=== PATIENT | female | born 1980 | race Caucasian/White ===

== ENCOUNTER → 2016-08-15 | Outpatient (CLI) | payer BC ==
[~2016-08-15] MED LIST: ACET-1256 PO; ALBUAER PO; LEVO1TAB33 PO
[2016-08-16 08:54] LABS: ESTIMATED AVERAGE GLUCOSE 105 mg/dl; HA1C FLAG Normal (Normal)
== END | disposition home or self-care (01) ==
LOC: C.LAB1850 15:04
PROVIDERS: ATTEND Family Medicine
DX: R73.02 Impaired glucose tolerance (oral) (principal)

== ENCOUNTER → 2017-03-26 | Outpatient (CLI) | payer BC ==
[~2017-03-26] MED LIST changes: +GADAVIST IV PRN
--- NOTE | 2017-03-26 16:10 | DIAGNOSTIC IMAGING REPORT ---
BRAIN COMBO CLINICAL HISTORY: R55 [id number] mental status change COMPARISON STUDY: No previous studies for comparison. TECHNIQUE: Utilizing a 1.5 Judith magnet and dedicated coil, multiplanar, multiecho imaging of the brain was performed pre and postcontrast administration. IV administration of 9.5 mL of Gadavist contrast was uneventful. FINDINGS: Diffusion-weighted images are negative for an acute ischemic event. Ventricular system is midline. Signal characteristics of the cerebellar as well as cerebral hemispheres are unremarkable. Jugular system is negative for displacement. Structures the sella and parasellar region are unremarkable. No abnormal postcontrast enhancement. IMPRESSION: Normal study. The above report was generated using voice recognition software. It may contain grammatical, syntax or spelling errors. Electronically signed by: Crow Nieto M.D. 03/26/2017 4:08 PM Dictated Date/Time: 03/26/2017 3:56 PM
[2017-03-26 17:55] LABS: LYME DISEASE AB IGG NEG (NEG)
[2017-03-26 18:06] LABS: LYME DISEASE AB IGM POS (NEG)
== END | disposition home or self-care (01) ==
LOC: C.MRI 14:30
PROVIDERS: ATTEND Physician Assistant
DX: R55 Syncope and collapse (principal); R51 Headache; A69.20 Lyme disease, unspecified

== ENCOUNTER 2024-01-07 21:54 | Observation (INO) ==
--- NOTE | 2024-01-07 22:46 | Emergency Department Note ---
Impression & Plan Abscess, periapical, Trismus ED Provider Note NAME: ABAD GENAO AGE: 43 SEX: F : 1980 ARRIVES VIA: Walk-In INFORMANT: Patient, ED PROVIDER(S): Nadeen Alas MD CHIEF COMPLAINT: Left lower jaw pain HPI: This is a 43-year-old female presenting for left lower jaw pain. Patient notes she has had an infection since Saturday/Saturday. Her dentist on vacation and was unable to be seen. They advised to go to urgent care. Was placed on Augmentin and given ibuprofen. She notes that she had worsening symptoms in which she is have difficulty opening her mouth. She noted a pressure building in her lower jaw today and then a sudden release where the pain became more in her upper jaw. She notes when she tries to open her mouth she is unable to open it wide and is difficulty talking. She is able to eat, solid secretion without any difficulty. ROS: See above HPI for pertinent positives & negatives. A total of 10 systems reviewed and were otherwise negative. PAST MEDICAL HISTORY: See Below PAST SURGICAL HISTORY: See Below FAMILY HISTORY: See Below SOCIAL HISTORY: See Below HOME MEDICATIONS: See Below ALLERGIES: See Below VITALS: See Below PHYSICAL EXAMINATION: General: resting comfortably in no acute distress Head: Normocephalic and atraumatic Eyes: Normal inspection, extraocular muscles intact Ear, nose, throat: Normal external exam, no obvious oral abscess, dental caries positive trismus Neck: Normal range of motion Respiratory: lungs clear to auscultation bilaterally Cardiovascular: Regular rate/rhythm, no murmur GI: soft, nontender, no guarding or rebound Extremities: nontender, moves all extremities Neuro: The patient awake and alert, appropriately conversive, no focal deficits, symmetric faces Skin: Warm, dry, and intact MEDICAL DECISION MAKING: This is a 43-year-old male present for left lower jaw pain and trismus. Patient is unable to open her mouth more than 1-2 cm currently. Is able to talk without any voice change. She notes pain in her mandibular region with opening. No obvious abscesses noted despite limited exam. Will do CT of the face to assess for underlying abscess. Low concern for Lev angina without lower jaw swelling. -bloodwork is reviewed showing no significant leukocytosis, anemia, electrolyte or creatinine abnormality -Patient CT imaging does show a 6 mm periapical abscess. There is submandibular lymph node swelling as well -Will order IV Unasyn at this time -Clinically patient appears well with reassuring white count, vital signs. There is obvious apical abscess. Patient does mention that symptoms are improving on Augmentin however clinically she has fairly significant trismus and can only open her mouth about 1 cm. Do of concern that this could worsen in the outpatient setting. Discussed with OMFS, Dr. Bailon who will see her in the morning consultation. Will give her Unasyn right now, IV. Will discuss with Dr. Lomeli for admission . Differential diagnosis: Lev angina, dental abscess, retropharyngeal abscess ER treatment provided: See below Independent History obtained from: Diagnostics interpreted by me: ECG: None Cardiac Monitoring: An order was placed for continuous cardiac monitoring. The monitor shows a rate of 83 with sinus rhythm. Laboratory studies: As stated above and show below. Imaging studies: See below. Past Med/Surg History Problem List (Updated 01/08/24 @ 11:47 by Nadeen Alas MD) Trismus (Acute) Abscess, periapical (Acute) Dental infection Calcium nephrolithiasis Thrombosed external hemorrhoid (Acute) Amniotic fluid leaking (Acute) Third trimester bleeding, antepartum (Acute) Breast pain, left (Acute) Breast tenderness (Acute) Chronic sinusitis (Acute) Right shoulder tendonitis (Acute) Nasal septal ulcer (Acute) Shoulder pain, left (Acute) Headache (Acute) Chest tightness (Acute) Shortness of breath (Acute) Migraines hx Syncope (Acute) Suspected Lyme disease (Acute) Stress reaction (Acute) Sciatica of left side (Acute) Palpitations (Acute) Non-smoker (Acute) Nausea (Acute) Myalgia (Acute) Muscle spasm of back (Acute) Macromastia (Acute) Lyme disease, acute (Acute) Low back pain (Acute) Impaired glucose tolerance (Acute) Hemorrhoids (Acute) Ganglion cyst (Acute) Fatigue (Acute) Encounter for routine gynecological examination with Papanicolaou smear of cervix (Acute) Elevated blood-pressure reading without diagnosis of hypertension (Acute) Breast pain (Acute) BMI 60.0-69.9, adult (Acute) BMI 50.0-59.9, adult (Acute) Subacromial impingement of left shoulder Encounter for pre-operative examination Impingement syndrome of left shoulder History of arthroscopic surgery of shoulder Plantar wart of left foot Right nephrolithiasis Encounter for pre-operative examination Hypertension Recently placed on Spironolactone, PCP monitoring Asthma (Chronic) Polycystic ovarian syndrome (Acute) Hypothyroidism (Acute) Per remote records, pt denies > euthyroid on most recent thyroid labs available (2018) Anxiety (Acute) Migraine without aura, not intractable, without status migrainosus Medical History Hx of endometriosis Kidney stones Lyme disease Dx several years ago, no current issues History of COVID-19 05/2021 > sinus infection 04/2020 > severe cold symptoms, asthma flare Depression Morbid obesity BMI 66.5 Surgical History Status post cystoscopy with ureteral stent placement 02/22/22 @ [facility] History of repair of rotator cuff left shoulder History of colonoscopy H/O laparoscopy Family History Grandfather (Maternal) Coronary heart disease Mother Hypertension Grandmother (Paternal) Family history of diabetes mellitus Family/Other Family history of diabetes mellitus Family/Other Family history of diabetes mellitus Social History Smoking Status: Never smoker Second Hand Exposure: No; Do You Dip or Chew Tobacco: No; Hx Alcohol Use: No Hx Substance Use: No Preferred Language: Faroese Communication Ability: Effective Visual Impairment: No Limitations Bias Binding Cutter Required: No Beliefs That Will Affect Care: None marital status: Current Living Situation: Spouse and Family Feels Safe at Home: Yes Assistive Devices: Glasses Allergies Allergies Allergy/AdvReac Type Severity Reaction Status Date / Time levofloxacin [From Levaquin] Allergy Intermediate HIVES ITCHY Verified 09/06/23 08:54 prednisone AdvReac Intermediate APPETITE Verified 09/06/23 08:54 LOSS/ANXIOUS/BUGS CRAWLING ON SKIN Home Meds Home Medications Medication Instructions Recorded Confirmed levonorgestrel 21 mcg/24 hr (up to 1 device intrauterine UD 03/17/19 01/08/24 8 years) 52 mg intrauterine device (Mirena) multivitamin (Multiple Vitamins 1 tab PO QAM 05/12/20 01/08/24 tablet) amoxicillin 875 mg-potassium 1 tab PO BID 01/08/24 01/08/24 clavulanate 125 mg tablet ibuprofen 800 mg tablet 800 mg PO TID 01/08/24 01/08/24 Previous Rx's Medication Instructions Recorded sumatriptan succinate 100 mg 100 mg PO .COMPLEX PRN migraine 04/09/22 tablet (Imitrex) headache 30 days #9 tabs Results & Data (ED) Vital Signs Vital Signs - 24 hr 01/07/24 21:56 01/08/24 00:00 Temperature 36.6 C Temperature Source Temporal Artery Scan Pulse Rate 97 H Pulse Rate [Finger] 82 Pulse Rhythm Regular Pulse Rhythm [Finger] Regular Pulse Strength Normal Pulse Strength [Finger] Normal Respiratory Rate 20 20 Respiratory Effort / Characteristics Non-Labored Spontaneous Non-Labored Spontaneous Respiratory Depth Normal Normal Blood Pressure 156/94 H Blood Pressure [Left Arm] 141/91 H Blood Pressure Mean 114 Blood Pressure Mean [Left Arm] 107 Blood Pressure Position [Left Arm] Lying Pulse Oximetry 95 98 Oxygen Delivery Method Room Air Room Air Sepsis Recent Fever Within 48 Hours No Sepsis New/Unexplained Change in Mental Status N/A Sepsis Action Taken by Nursing No Action Required Laboratory Data 01/07/24 22:35 01/07/24 22:35 Lab Results 01/07/24 01/07/24 Range/Units 22:35 22:39 WBC 9.24 (4.8-10.8) K/ul RBC 4.93 (4.20-5.40) M/uL Hgb 15.0 (12.0-16.0) g/dl POC Hgb 15.3 (12.0-16.0) g/dl Hct 44.7 (37.0-47.0) % POC Hct 45 (37-47) % MCV 90.7 (80.0-100.0) fL MCH 30.4 (25.0-34.0) pg MCHC 33.6 (32.0-36.0) g/dL RDW Std Deviation 42.7 (36.4-46.3) fL RDW Coeff of Graham 12.8 (11.5-14.5) % Plt Count 288 (130-400) K/uL MPV 10.1 (9.4-12.4) fL Immature Gran % (Auto) 0.2 % Neut % (Auto) 57.1 % Lymph % (Auto) 30.0 % [place] % (Auto) 10.6 % Eos % (Auto) 1.2 % Baso % (Auto) 0.9 % Neut # (Auto) 5.28 (1.40-6.50) K/uL Lymph # (Auto) 2.77 (1.20-3.40) K/uL [place] # (Auto) 0.98 H (0.11-0.59) K/uL Eos # (Auto) 0.11 (0.00-0.50) K/uL Baso # (Auto) 0.08 (0.00-0.20) K/uL Immature Gran # (Auto) 0.02 (0.01-0.20) K/uL POC Sodium 138 (135-144) mmol/L Sodium 137 (136-145) mmol/L POC Potassium 3.7 (3.3-5.0) mmol/L Potassium 3.7 (3.5-5.1) mmol/L POC Chloride 103 (101-112) mmol/L Chloride 103 (98-107) mmol/L Carbon Dioxide 26 (21-32) mmol/L POC Total CO2 23 L (24-31) mmol/L Anion Gap 8 (3-11) POC Anion Gap 16.0 (16-25) mmol/L POC BUN 12 (7-18) mg/dl BUN 14 (6-23) mg/dl Creatinine 0.78 (0.6-1.2) mg/dl POC Creatinine 0.7 (0.6-1.3) mg/dl Est Cr Clr Drug Dosing 143.8 ml/min Est GFR ( Amer) 108.7 ml/min Est GFR (Non-Af Amer) 93.8 ml/min BUN/Creatinine Ratio 17.9 (10-20) Glucose 108 H (70-99(Fasting)) mg/dl POC Glucose (other) 110 H (70-99) mg/dl Calcium 9.5 (8.6-10.3) mg/dl POC Ioniz Calcium [place] 1.17 (1.12-1.32) mmol/l Administered Medications Ampicillin Sodium/Sulbactam Sodium (Unasyn) 3,000 mg in 100 mls @ 200 mls/hr IV Q6H TAZ Stop: 01/18/24 07:59 Last Infusion: 01/08/24 08:42 Dose: Infused Documented By: Admin: 01/08/24 07:54 Dose: 200 mls/hr Documented By: NEIL Lactated Ringer's (Lr) 1,000 mls @ 100 mls/hr IV .Q10H ONE Stop: 01/08/24 20:22 Last Admin: 01/08/24 11:31 Dose: 100 mls/hr Documented By: NEIL Ibuprofen (Ibuprofen 800 Mg Tab) 800 mg PO TID TAZ Stop: 02/07/24 08:59 Last Admin: 01/08/24 08:37 Dose: 800 mg Documented By: NEIL Discontinued Medications Ampicillin Sodium/Sulbactam Sodium (Unasyn) 3,000 mg in 100 mls @ 200 mls/hr IV NOW STA Stop: 01/08/24 01:19 Last Infusion: 01/08/24 01:52 Dose: Infused Documented By: Admin: 01/08/24 01:14 Dose: 200 mls/hr Documented By: DARSHANA Ioversol (Optiray 320 125ml) 125 ml IV ONCE ONE Stop: 01/07/24 23:13 Last Admin: 01/07/24 23:13 Dose: 118 ml Documented By: DAYRON Imaging Data Radiologist's Impression: Face CT 01/07/24 22:28 Exam(s): CT FACIAL With Contrast IV Amt: 118 ML OPTIRAY 320 EXAM: CT Maxillofacial With Intravenous Contrast CLINICAL HISTORY: Reason for exam: lower dental infection, trismus. TECHNIQUE: Axial computed tomography images of the face with intravenous contrast. CTDI is 13.27 mGy and DLP is 259.73 mGy-cm. Automated exposure control was utilized for the study. A dose lowering technique was utilized adhering to the principles of ALARA. CONTRAST: Patient received 118 ML OPTIRAY 320 of IV contrast COMPARISON: None. FINDINGS: Diagnostic sensitivity of the exam is reduced by motion and beam hardening artifacts. Bones/joints: No acute fracture. Soft tissues: Posterior left mandibular a 6.0 mm periapical lucency/periapical abscess is demonstrated (series 2 image 59, series 301 image 36). Orbits: Unremarkable. Sinuses: Minimal left maxillary sinus mucosal thickening. No air-fluid levels. Other findings: Mildly enlarged predominantly left submandibular lymph nodes. IMPRESSION: Posteriorly left mandibular a small 6 mm periapical lucency/periapical abscess is seen.. Mildly enlarged predominantly left submandibular lymph nodes. Electronically signed by: John Rivas MD, SHAHBAZ 01/08/24 00:36 AM Discharge Plan Visit Data Chief Complaint: Dental/Oral Stated Complaint: JAW INFECTION L SIDE - GETTING WORSE ED Provider: Nadeen Alas Discharge Problem: Abscess, periapical, Trismus Patient Disposition: Admitted As Inpatient Discharge Instructions Interventions: ED Discharge Assessment Last Done: 01/08/24 04:14
[2024-01-07 22:53] LABS: iSTAT Creatinine 0.7 mg/dl (0.6-1.3); iSTAT Hemoglobin 15.3 g/dl (12.0-16.0); iSTAT Ionized Calcium 1.17 mmol/l (1.12-1.32); iSTAT Potassium 3.7 mmol/L (3.3-5.0)
[2024-01-07 23:12] LABS: Basophils # (auto) 0.08 K/uL (0.00-0.20); Basophils % (auto) 0.9 %; Eosinophils # (auto) 0.11 K/uL (0.00-0.50); Eosinophils % (auto) 1.2 %; Hematocrit (blood only) 44.7 % (37.0-47.0); Immature Granulocytes # (auto) 0.02 K/uL (0.01-0.20); Immature Granulocytes % (auto) 0.2 %; Lymphocytes # (auto) 2.77 K/uL (1.20-3.40); Mean Corpuscular Hemoglobin 30.4 pg (25.0-34.0); Mean Corpuscular Hgb Conc 33.6 g/dL (32.0-36.0); Mean Corpuscular Volume 90.7 fL (80.0-100.0); Mean Platelet Volume 10.1 fL (9.4-12.4); Monocytes # (auto) 0.98 K/uL (0.11-0.59); Monocytes % (auto) 10.6 %; Neutrophils # (auto) 5.28 K/uL (1.40-6.50); Neutrophils % (auto) 57.1 %; Platelet Count 288 K/uL (130-400); RDW Coefficient of Variation 12.8 % (11.5-14.5); RDW Standard Deviation 42.7 fL (36.4-46.3); Red Blood Count 4.93 M/uL (4.20-5.40); White Blood Count 9.24 K/ul (4.8-10.8)
[2024-01-07] MEDS: OPTIRAY 320 125ml IV ONE (23:13)
[2024-01-07 23:19] LABS: BUN Creatinine Ratio 17.9 (10-20); Calcium 9.5 mg/dl (8.6-10.3); Creatinine Clr Calc Pharmacy 143.8 ml/min; Est GFR (African American) 108.7 ml/min; Est GFR (Non-African American) 93.8 ml/min; Potassium 3.7 mmol/L (3.5-5.1)
--- NOTE | 2024-01-08 00:37 | CT Scan Report ---
Exam(s): CT FACIAL With Contrast IV Amt: 118 ML OPTIRAY 320 EXAM: CT Maxillofacial With Intravenous Contrast CLINICAL HISTORY: Reason for exam: lower dental infection, trismus. TECHNIQUE: Axial computed tomography images of the face with intravenous contrast. CTDI is 13.27 mGy and DLP is 259.73 mGy-cm. Automated exposure control was utilized for the study. A dose lowering technique was utilized adhering to the principles of ALARA. CONTRAST: Patient received 118 ML OPTIRAY 320 of IV contrast COMPARISON: None. FINDINGS: Diagnostic sensitivity of the exam is reduced by motion and beam hardening artifacts. Bones/joints: No acute fracture. Soft tissues: Posterior left mandibular a 6.0 mm periapical lucency/periapical abscess is demonstrated (series 2 image 59, series 301 image 36). Orbits: Unremarkable. Sinuses: Minimal left maxillary sinus mucosal thickening. No air-fluid levels. Other findings: Mildly enlarged predominantly left submandibular lymph nodes. IMPRESSION: Posteriorly left mandibular a small 6 mm periapical lucency/periapical abscess is seen.. Mildly enlarged predominantly left submandibular lymph nodes. Electronically signed by: John Rivas MD, DABR 01/08/24 00:36 AM
--- NOTE | 2024-01-08 01:00 | History & Physical Report ---
Date of Service January 08, 2024 Assessment & Plan (1) Dental infection: Plan: 43yo female presenting with progressive dental infection. Patient has been on Augmentin and Ibuprofen as an outpatient but has had worsening symptoms. Now with pain, warmth and tenderness in her left face and neck as well as trismus. No systemic evidence of infection. -Admit to medical -Keep NPO -Unasyn 3gm IV q 6hr -Warm compresses -Tylenol and Ibuprofen as needed -Zofran as needed -OMFS consultation appreciated History of Present Illness Chief Complaint: trismus Primary Care Provider: NO PCP Venessa Clement is a 43yo female presenting with right sided facial pain and swelling. Patient developed a slight toothache in the left mandibular molar on 01/02/24. Her pain became much worse overnight into 01/02. When she woke in the morning she had warmth, swelling and tenderness of the left side of the face. She tried to call her dentist but he was unavailable on vacation so she was directed to go to Urgent Care. She was diagnosed with a tooth infection and prescribed Augmentin 875/125mg BID and Ibuprofen 800mg po TID. She has been taking her medications as prescribed. She initially had some improvement. However, yesterday she was unable to open her mouth. She called her PCP and had an appointment scheduled for tomorrow AM. THis evening she had a bulge in her left neck and under her chin on the left side. She reports she felt something "pop" and felt fluid spread down her neck. Her pain is persistent and she is still unable to open her mouth. She had a fever initially on 01/01 but not since No additional complaints at this time Allergies Allergy/AdvReac Type Severity Reaction Status Date / Time levofloxacin [From Levaquin] Allergy Intermediate HIVES ITCHY Verified 09/06/23 08:54 prednisone AdvReac Intermediate APPETITE Verified 09/06/23 08:54 LOSS/ANXIOUS/BUGS CRAWLING ON SKIN Home Medications Medication Instructions Recorded Confirmed Type levonorgestrel 21 mcg/24 hr (up to 1 device intrauterine UD 03/17/19 01/08/24 History 8 years) 52 mg intrauterine device (Mirena) multivitamin (Multiple Vitamins 1 tab PO QAM 05/12/20 01/08/24 History tablet) sumatriptan succinate 100 mg 100 mg PO .COMPLEX PRN migraine 04/09/22 01/08/24 Rx tablet (Imitrex) headache 30 days #9 tabs amoxicillin 875 mg-potassium 1 tab PO BID 01/08/24 01/08/24 History clavulanate 125 mg tablet ibuprofen 800 mg tablet 800 mg PO TID 01/08/24 01/08/24 History Past Med/Surg History Problem List (Updated 01/08/24 @ 03:48 by Elsy Lomeli DO) Dental infection Calcium nephrolithiasis Thrombosed external hemorrhoid (Acute) Amniotic fluid leaking (Acute) Third trimester bleeding, antepartum (Acute) Breast pain, left (Acute) Breast tenderness (Acute) Chronic sinusitis (Acute) Right shoulder tendonitis (Acute) Nasal septal ulcer (Acute) Shoulder pain, left (Acute) Headache (Acute) Chest tightness (Acute) Shortness of breath (Acute) Migraines hx Syncope (Acute) Suspected Lyme disease (Acute) Stress reaction (Acute) Sciatica of left side (Acute) Palpitations (Acute) Non-smoker (Acute) Nausea (Acute) Myalgia (Acute) Muscle spasm of back (Acute) Macromastia (Acute) Lyme disease, acute (Acute) Low back pain (Acute) Impaired glucose tolerance (Acute) Hemorrhoids (Acute) Ganglion cyst (Acute) Fatigue (Acute) Encounter for routine gynecological examination with Papanicolaou smear of cervix (Acute) Elevated blood-pressure reading without diagnosis of hypertension (Acute) Breast pain (Acute) BMI 60.0-69.9, adult (Acute) BMI 50.0-59.9, adult (Acute) Subacromial impingement of left shoulder Encounter for pre-operative examination Impingement syndrome of left shoulder History of arthroscopic surgery of shoulder Plantar wart of left foot Right nephrolithiasis Encounter for pre-operative examination Hypertension Recently placed on Spironolactone, PCP monitoring Asthma (Chronic) Polycystic ovarian syndrome (Acute) Hypothyroidism (Acute) Per remote records, pt denies > euthyroid on most recent thyroid labs available (2018) Anxiety (Acute) Migraine without aura, not intractable, without status migrainosus Medical History Hx of endometriosis Kidney stones Lyme disease Dx several years ago, no current issues History of COVID-19 05/2021 > sinus infection 04/2020 > severe cold symptoms, asthma flare Depression Morbid obesity BMI 66.5 Surgical History Status post cystoscopy with ureteral stent placement 02/22/22 @ [facility] History of repair of rotator cuff left shoulder History of colonoscopy H/O laparoscopy Family History Grandfather (Maternal) Coronary heart disease Mother Hypertension Grandmother (Paternal) Family history of diabetes mellitus Family/Other Family history of diabetes mellitus Family/Other Family history of diabetes mellitus Social History Smoking Status: Never smoker Second Hand Exposure: No; Do You Dip or Chew Tobacco: No; Hx Alcohol Use: No Hx Substance Use: No Preferred Language: Greenlandic Communication Ability: Effective Visual Impairment: No Limitations Bull Fiddle Player Required: No Beliefs That Will Affect Care: None marital status: Current Living Situation: Spouse and Family Feels Safe at Home: Yes Assistive Devices: Contacts and Glasses Review of Systems Review of Systems: All systems reviewed & are unremarkable except as noted in HPI & below Physical Exam Physical Exam: General: patient resting comfortably, NAD, non-toxic in appearance, AA&O x 4 Skin: warm, dry, intact, no rashes or lesions HEENT: NC/AT, PERRL, EOMI, anicteric sclera, conjunctiva without injection, external ear normal to inspection and nontender, nares patent, dry mucus membranes, patient unable to open mouth omre than a couple of millimeters, broke tooth in left lower, warmth, tenderness on the left side of the fact, below chin and into the neck Heart: +S1/S2, regular, no m/r/g Lungs: equal air entry bilaterally, no rales/rhonchi/wheezes Abd: +BS, soft, NT/ND, no masses/organomegaly/ascites Ext: warm, 2+ pulses in UE/LE bilaterally, no clubbing/cyanosis or edema Neuro: nonfocal, patient AA&O x 4, speech intact, no facial droop, moving all extremities on command with equal strength 5/5 Results & Data Results & Data Vital Signs (Past 12 Hours) Vital Signs Temp Pulse Pulse Resp BP BP Pulse Ox 01/08/24 00:00 82 20 141/91 H 98 01/07/24 21:56 36.6 C 97 H 20 156/94 H 95 O2 Del Method 01/08/24 00:00 Room Air 01/07/24 21:56 Room Air Laboratory Results Laboratory Results WBC 9.24 K/ul (4.8-10.8) 01/07/24 22:35 RBC 4.93 M/uL (4.20-5.40) 01/07/24 22:35 Hgb 15.0 g/dl (12.0-16.0) 01/07/24 22:35 POC Hgb 15.3 g/dl (12.0-16.0) 01/07/24 22:39 Hct 44.7 % (37.0-47.0) 01/07/24 22:35 POC Hct 45 % (37-47) 01/07/24 22:39 MCV 90.7 fL (80.0-100.0) 01/07/24 22:35 MCH 30.4 pg (25.0-34.0) 01/07/24 22:35 MCHC 33.6 g/dL (32.0-36.0) 01/07/24 22:35 RDW Std Deviation 42.7 fL (36.4-46.3) 01/07/24 22:35 RDW Coeff of Graham 12.8 % (11.5-14.5) 01/07/24 22:35 Plt Count 288 K/uL (130-400) 01/07/24 22:35 MPV 10.1 fL (9.4-12.4) 01/07/24 22:35 Immature Gran % (Auto) 0.2 % 01/07/24 22:35 Neut % (Auto) 57.1 % 01/07/24 22:35 Lymph % (Auto) 30.0 % 01/07/24 22:35 [place] % (Auto) 10.6 % 01/07/24 22:35 Eos % (Auto) 1.2 % 01/07/24 22:35 Baso % (Auto) 0.9 % 01/07/24 22:35 Neut # (Auto) 5.28 K/uL (1.40-6.50) 01/07/24 22:35 Lymph # (Auto) 2.77 K/uL (1.20-3.40) 01/07/24 22:35 [place] # (Auto) 0.98 K/uL (0.11-0.59) H 01/07/24 22:35 Eos # (Auto) 0.11 K/uL (0.00-0.50) 01/07/24 22:35 Baso # (Auto) 0.08 K/uL (0.00-0.20) 01/07/24 22:35 Immature Gran # (Auto) 0.02 K/uL (0.01-0.20) 01/07/24 22:35 POC Sodium 138 mmol/L (135-144) 01/07/24 22:39 Sodium 137 mmol/L (136-145) 01/07/24 22:35 POC Potassium 3.7 mmol/L (3.3-5.0) 01/07/24 22:39 Potassium 3.7 mmol/L (3.5-5.1) 01/07/24 22:35 POC Chloride 103 mmol/L (101-112) 01/07/24 22:39 Chloride 103 mmol/L (98-107) 01/07/24 22:35 Carbon Dioxide 26 mmol/L (21-32) 01/07/24 22:35 POC Total CO2 23 mmol/L (24-31) L 01/07/24 22:39 Anion Gap 8 (3-11) 01/07/24 22:35 POC Anion Gap 16.0 mmol/L (16-25) 01/07/24 22:39 POC BUN 12 mg/dl (7-18) 01/07/24 22:39 BUN 14 mg/dl (6-23) 01/07/24 22:35 Creatinine 0.78 mg/dl (0.6-1.2) 01/07/24 22:35 POC Creatinine 0.7 mg/dl (0.6-1.3) 01/07/24 22:39 Est Cr Clr Drug Dosing 143.8 ml/min 01/07/24 22:35 Est GFR ( Amer) 108.7 ml/min 01/07/24 22:35 Est GFR (Non-Af Amer) 93.8 ml/min 01/07/24 22:35 BUN/Creatinine Ratio 17.9 (10-20) 01/07/24 22:35 Glucose 108 mg/dl (70-99(Fasting)) H 01/07/24 22:35 POC Glucose (other) 110 mg/dl (70-99) H 01/07/24 22:39 Calcium 9.5 mg/dl (8.6-10.3) 01/07/24 22:35 POC Ioniz Calcium [place] 1.17 mmol/l (1.12-1.32) 01/07/24 22:[address] 01/07/24 22:28 Exam(s): CT FACIAL With Contrast IV Amt: 118 ML OPTIRAY 320 EXAM: CT Maxillofacial With Intravenous Contrast CLINICAL HISTORY: Reason for exam: lower dental infection, trismus. TECHNIQUE: Axial computed tomography images of the face with intravenous contrast. CTDI is 13.27 mGy and DLP is 259.73 mGy-cm. Automated exposure control was utilized for the study. A dose lowering technique was utilized adhering to the principles of ALARA. CONTRAST: Patient received 118 ML OPTIRAY 320 of IV contrast COMPARISON: None. FINDINGS: Diagnostic sensitivity of the exam is reduced by motion and beam hardening artifacts. Bones/joints: No acute fracture. Soft tissues: Posterior left mandibular a 6.0 mm periapical lucency/periapical abscess is demonstrated (series 2 image 59, series 301 image 36). Orbits: Unremarkable. Sinuses: Minimal left maxillary sinus mucosal thickening. No air-fluid levels. Other findings: Mildly enlarged predominantly left submandibular lymph nodes. IMPRESSION: Posteriorly left mandibular a small 6 mm periapical lucency/periapical abscess is seen.. Mildly enlarged predominantly left submandibular lymph nodes. Electronically signed by: John Rivas MD, SALEEMR 01/08/24 00:36 AM PG Care Time/CCT Total # of Minutes Spent Total Time Spent with Patient: Total time spent is greater than 50% in coordination of care (as documented) at patient's floor/unit and/or counseling patient: Coding Level of Care Code 60005 INT INP/OBS CARE 2/55MIN Diagnoses Dental infection K04.7
[2024-01-08] MEDS: AMPICILLIN/SULBACTAM SOD 3,000 MG/100 ML BAG IV STA (01:14)
--- OUTSIDE RECORDS SUMMARY | 2024-01-08 06:25 | External Medical Summary | Summary of Care ---
Author Name Unknown Organization [facility] Address [address] [place] [address] Phone [phone] Care Team Providers Care Shift Production Associate Name Role Phone Gisela MUÑOZ MD, Jd Posada Primary Care Pr ovider Encounter Details Date Type Department Care Team (Late st Contact Info) Description 12/02/2023 Orders Only Outcomes Research Department [address] [place] [address] Stefanie Berry [employer] Research Other*[id number] Allergies No known active allergiesdocumented as of this encounter (statuses as of 12/02/2023) Medications Medication Sig Dispensed Refills Start Date End Date Status Multiple Vitamins-Minerals (MULTIVITAMIN GUMMIES WOMENS) CHEW Take 2 Each by mouth daily. Active albuterol HFA (PROVENTIL HFA) 108 (90 BASE) MCG/ACT inhaler Inhale 2 Puffs by mouth every 6 hours as needed. Active buPROPion extended release, SR, (WELLBUTRIN SR) 150 MG TB12 Take 1 tab by mouth once a day for 2 weeks then take 1 tab twice a day (morning & late afternoon) 60 Tab 1 09/11/2018 Active naltrexone (REVIA) 50 MG Tablet Take 1/2 tab by mouth once a day for 2 weeks then take 1/2 tab twice a day (morning & late afternoon) 30 Tab 09/11/2018 Active documented as of this encounter (statuses as of 12/02/2023) Active Problems Problem Noted Date Diagnosed Date Hypothyroidism 07/03/2018 Depression with anxiety 07/03/2018 BMI 60.0-69.9, adult 07/03/2018 documented as of this encounter (statuses as of 12/02/2023) Social History Tobacco Use Types Packs/Day Years Used Date Smoking Tobacco: Never Smokeless Tobacco: Never Alcohol Use Standard Drinks/Week Comments Yes 0 (1 standard drink = 0.6 oz pur e alcohol) very rare Utilities Answer Date Recorded Do you have trouble paying y our heating, water, or electric bill? (Adult - for ages 18 years and over) Not on file 10/22/2023 Is your family able to pay t he heat, water, or electric bill? (Household - for ages 0-17 years) Not on file 10/22/2023 Does your family have access to good internet? (Household - for ages 0-17 years) Not on file 10/22/2023 Social Connections Answer Date Recorded How often do you feel lonely or isolated from those around you? (Adult - for ages 18 years and over) Not on file 10/22/2023 Sex and Gender Information Value Date Recorded Sex Assigned at Not on file Gender Identity Not on file Sexual Orientation Not on file documented as of this encounter Plan of Treatment Scheduled Orders Name Type Priority Associated Diagnoses Orde r Schedule MYCODE INITIAL ADULT Lab Routine [employer] Research Other*[id number] Expected: 12/02/2023 (Approximate), Expires: 12/21/2024 Health Maintenance Due Date Last Done Comments Diabetes Screening 1981 Lipid Panel 1981 Depression Monitoring 1993 HIV Screening 1996 Hepatitis C Screening 07/21/1999 DTaP,Tdap,and Td Vaccines (1 - Tdap) 2000 Hepatitis B Vaccine (1 of 3 - 19+ 3-dose series) 2000 Pap Smear 2002 Cervical Cancer Screening 07/21/2011 HPV/Co-Test 07/21/2011 Mammogram 2021 COVID-19 Vaccine ( - 2022-2 4 season) 2023 Influenza Vaccine (FLU shot) (#1) 2024 HPV (Gardasil) Vaccine Aged Out No lo nger eligible based on patient's age to complete this topic MENINGOCOCCAL (MENACTRA/MENVEO) Aged Out No longer eligible based on patient's age to complete this topic Pneumococcal Vaccine: Pediat rics (0 to 5 Years) and At-Risk Patients (6 to 64 Years) Aged Out No longer eligible b ased on patient's age to complete this topic documented as of this encounter Medical Devices Not on filedocumented as of this encounter Visit Diagnoses Diagnosis [employer] Research Other*[id number] documented in this encounter Care Teams Shift Production Associate Relationship Specialty Start Date End Date Jd Higgins III, MD PCP - General Internal Medicine 02/23/16 documented as of this encounter
[2024-01-08] MEDS: AMPICILLIN/SULBACTAM SOD 3,000 MG/100 ML BAG IV SCH (07:54)
[2024-01-08] MEDS: IBUPROFEN 800 MG TAB PO SCH (08:37)
--- NOTE | 2024-01-08 10:18 | Hospitalist Progress Note ---
Date of Service January 08, 2024 Assessment & Plan (1) Dental infection: Plan: - left posterior mandibular abscess of [address] - Continue with NPO, awaiting potential surgical management - IV fluids (LR) ordered, patient clinically appears dry - no signs of systemic infection at this time - Warm compresses - Tylenol, Ibuprofen, and Zofran as needed - Unasyn 3gm IV q 6hr - OMFS consulted Plan Diet: NPO Code status: FULL CODE Anticipated d/c: 01/09/24 Admission and Anticipated Discharge Date Admission Date: January 08, 2024 Supervising Physician Co-Signing Physician Notes Patient was seen and examined independently I discussed the case with Iman THOMAS I reviewed pertinent past medical social family history and also the plan of care and agree with the plan of care. Patient was in her hospital room she said she still has some minor pain to the posterior left jaw but is much better than presentation she has no persistent breathing problems. At my time of evaluation she is awaiting consultation by oral maxillofacial surgery with expectation she is can have her abscess drained Generally she has no other medical problems or complaints at this time She is awake alert appropriate she is able to control her secretions and protect her airway No significant lymphadenopathy in the posterior mandibular inframandibular area Card exam is regular lungs are clear Periodontal abscess with oral maxillofacial surgical consultation continuing Un asyn therapy with expectation of likely abscess drainage in the operating room Continue intravenous fluids and parenteral pain control as needed Any exceptions will be noted below Subjective Patient is doing well with no acute event overnight. Upon examination patient was laying in bed watching TV. She states she does not have any pain, she just cannot open her jaw more than a few centimeters. She denies nausea, vomiting, diarrhea, abdominal pain, vision changes, sore throat, cough, and shortness of breath. She felt the left sided jaw inflammation was causing difficultly breathing yesterday, when she arrived, but those symptoms have subsided. Review of Systems Review of Systems: See hpi Physical Exam Physical Exam: The patient is awake, alert and oriented 3, well developed and well nourished, normocephalic and atraumatic, lying in bed and in no acute distress. Non-toxic appearing. HEENT- EOMI, mucous membranes dry. Hearing grossly intact. Patient unable to open mouth more than a few centimeters, no drainage noted. Neck- Thyroid normal, trachea midline. Mild swelling, warmth, and tenderness on left side below the chin and into the upper neck. Heart-normal S1 and S2. No murmurs, rubs or gallops. Lungs-clear bilaterally, no respiratory distress, no accessory muscle use. Abdomen-normal bowel sounds and soft.No ascites. Non-tender. Extremities-no cyanosis or clubbing. No edema. Dermatologic-normal color, no rash. Rheumatologic-normal range of motion. Psychiatric-normal affect. Results & Data Results & Data Vital Signs (Past 12 Hours) Vital Signs Temp Pulse Pulse Resp BP BP Pulse Ox 01/08/24 08:03 36.7 C 83 14 136/76 95 01/08/24 07:42 36.5 C 76 18 103/66 96 01/08/24 04:40 01/08/24 04:40 36.9 C 76 14 141/86 H 95 01/08/24 02:00 74 18 140/93 97 01/08/24 00:00 82 20 141/91 H 98 O2 Del Method 01/08/24 08:03 Room Air 01/08/24 07:42 Room Air 01/08/24 04:40 Room Air 01/08/24 04:40 Room Air 01/08/24 02:00 Room Air 01/08/24 00:00 Room Air PG Care Time/CCT Total # of Minutes Spent Total Time Spent with Patient: Total time spent is greater than 50% in coordination of care (as documented) at patient's floor/unit and/or counseling patient: Coding Level of Care Code None Diagnoses Dental infection K04.7
--- NOTE | 2024-01-08 11:25 | Oral/Maxillofacial Consult ---
Date of Consultation January 08, 2024 Assessment & Plan (1) Trismus: (2) Abscess, periapical: (3) Dental infection: History of Present Illness Attending Physician: Juan Manuel Lugo MD History of Present Illness Oral Maxillofacial Surgery Exam Present Complaint: I have pain/swelling/drainage from my infected lower left tooth. Symptoms have been ongoing for a while. Now swollen inability to open mouth -trismus Oral ExamThis is a 43-year-old male present for left lower jaw pain and trismus. Patient is unable to open her mouth more than 1 cm currently. Is able to talk without any voice change. She notes pain in her mandibular region with opening. No obvious abscesses noted despite limited exam. -bloodwork is reviewed showing no significant leukocytosis, anemia, electrolyte or creatinine abnormality -Patient CT imaging does show a 6 mm periapical abscess. There is submandibular lymph node swelling as well -Clinically patient appears well with reassuring white count, vital signs. There is obvious apical abscess. Patient does mention that symptoms are improving on Augmentin however clinically she has fairly significant trismus and can only open her mouth about 1 cm. Do to concern that this could worsen in the outpatient setting. Discussed with OMFS, Dr. Bailon who will see her in the morning consultation. Will give her Unasyn right now, IV. Will discuss with Dr. Lomeli for admission.: Finding--Trismus 1 cm, swollen tender gingival tissue with deep pocket formation. # 18 is in an abnormal position and removal is clinical indicated. Imaging: Noted abscessed # 18 with cortical radiolucent area at apex-this is the etiology for the submandibular swelling and trismus, Soft tissue: The floor of the mouth is swollen however n swelling associated with the tongue, hard/soft palate, posterior pharyngeal area all with in normal limits, The bulk of the swelling is in the left masseter space which accounts for the lack of extraoral swelling and the significant trismus. Oral Care: Overall oral care is fair Occlusion: Class I TMJ exam: No pop, clicking, pain, good ROM, No history of TMJ injury or dysfunction Periodontal exam: Overall the gingival tissue is without evidence of periodontal pathology. Head/Neck exam: Neck is supple, FROM, Able to extend and flex neck w/o difficulty, left submandibular and masseter space swelling swelling, no masses, no abnormalities, no airway issues, no evidence of sleep apnea. Treatment Plan: Set up with general anesthesia in hospital for I&D with extraction # 18 I reviewed the treatment plan and consent with the patient Understanding was expressed. Time was given for questions regarding the surgery, risks and post op care. Discussed alternative to treatment--procedure as planned, Do not do surgery The following teeth are decayed and fractured and removal is indicated STEVE:# 18 Risks discussed: Bleeding,Pain,swelling,infection, dry socket, delayed healing, nerve injury to face,lips,tongue,chin area which could be permanent (rare). TMJ, jaw stiffness, change in bite (rare), ear pain (referred). Sinus problems like fistula or infection. Need to leave a small root fragment in place to avoid injury to nerve or sinus. Relationship of wisdom teeth to nerve/sinus and risk of jaw fracture. Home care reviewed: tooth brushing, rinsing, follow up care with Dr Bailon. diet=[id number] dental. Discussed activity level, driving/work while on Rx pain Meds. Surgery to be set up once for this afternoon - plan I&D with extraction of # 18 Allergies Allergy/AdvReac Type Severity Reaction Status Date / Time levofloxacin [From Levaquin] Allergy Intermediate HIVES ITCHY Verified 09/06/23 08:54 prednisone AdvReac Intermediate APPETITE Verified 09/06/23 08:54 LOSS/ANXIOUS/BUGS CRAWLING ON SKIN Home Medications Medication Instructions Recorded Confirmed Type levonorgestrel 21 mcg/24 hr (up to 1 device intrauterine UD 03/17/19 01/08/24 History 8 years) 52 mg intrauterine device (Mirena) multivitamin (Multiple Vitamins 1 tab PO QAM 05/12/20 01/08/24 History tablet) sumatriptan succinate 100 mg 100 mg PO .COMPLEX PRN migraine 04/09/22 01/08/24 Rx tablet (Imitrex) headache 30 days #9 tabs amoxicillin 875 mg-potassium 1 tab PO BID 01/08/24 01/08/24 History clavulanate 125 mg tablet ibuprofen 800 mg tablet 800 mg PO TID 01/08/24 01/08/24 History Patient History Medical History Hx of endometriosis Kidney stones Lyme disease Dx several years ago, no current issues History of COVID-19 05/2021 > sinus infection 04/2020 > severe cold symptoms, asthma flare Depression Morbid obesity BMI 66.5 Surgical History Status post cystoscopy with ureteral stent placement 02/22/22 @ [facility] History of repair of rotator cuff left shoulder History of colonoscopy H/O laparoscopy Family History Grandfather (Maternal) Coronary heart disease Mother Hypertension Grandmother (Paternal) Family history of diabetes mellitus Family/Other Family history of diabetes mellitus Family/Other Family history of diabetes mellitus Social History Smoking Status: Never smoker Second Hand Exposure: No; Do You Dip or Chew Tobacco: No; Hx Alcohol Use: No Hx Substance Use: No Preferred Language: Maori Communication Ability: Effective Visual Impairment: No Limitations Elevator Runner Required: No Beliefs That Will Affect Care: None marital status: Current Living Situation: Spouse and Family Feels Safe at Home: Yes Assistive Devices: Glasses Results & Data Vital Signs (Past 12 Hours) Vital Signs Temp Pulse Pulse Resp BP BP Pulse Ox 01/08/24 08:03 36.7 C 83 14 136/76 95 01/08/24 07:42 36.5 C 76 18 103/66 96 01/08/24 04:40 01/08/24 04:40 36.9 C 76 14 141/86 H 95 01/08/24 02:00 74 18 140/93 97 01/08/24 00:00 82 20 141/91 H 98 O2 Del Method 01/08/24 08:03 Room Air 01/08/24 07:42 Room Air 01/08/24 04:40 Room Air 01/08/24 04:40 Room Air 01/08/24 02:00 Room Air 01/08/24 00:00 Room Air PG Care Time/CCT Total # of Minutes Spent Total Time Spent with Patient: Total time spent is greater than 50% in coordination of care (as documented) at patient's floor/unit and/or counseling patient: Coding Level of Care Code 86261 IN/OBS CONSULT LVL 2,35M Diagnoses Trismus R25.2 Abscess, periapical K04.7 Dental infection K04.7 CPT Codes EO I&D ABSC/CYST FLOOR OF MOUTH PUFF IRONER SP - [id number] ([id number]) REM IMP TOOTH W MUCOPER FLP - [id number] ([id number])
[2024-01-08] MEDS: LACTATED RINGER'S 1,000 ML IV ONE (11:31)
--- NOTE | 2024-01-08 13:53 | Billing Data ---
Date of Service January 08, 2024 Coding Level of Care Code 11722 INT INP/OBS CARE
[2024-01-08] MEDS ORDERED: ROCURONIUM BROMIDE 10 MG/ML 5 ML VIAL IV ONE (15:50)
[2024-01-08] MEDS ORDERED: PROPOFOL IV EMULSION 10 MG/ML 20 ML VIAL IV ONE (15:50)
[2024-01-08] MEDS ORDERED: fentaNYL citrate PF 100 MCG/2 ML VIAL ONE (15:50)
[2024-01-08] MEDS ORDERED: LIDOCAINE 2% 2 ML VIAL/AMP(20MG/ML) INFIL ONE (15:50)
[2024-01-08] MEDS ORDERED: ONDANSETRON INJ 2 MG/ML 2 ML VIAL ONE (15:50)
[2024-01-08] MEDS ORDERED: GLYCOPYRROLATE 0.2 MG/ML VIAL ONE (15:50)
[2024-01-08] MEDS ORDERED: DEXAMETHASONE SOD INJ 4 MG/ML VIAL ONE (15:50)
[2024-01-08] MEDS ORDERED: MIDAZOLAM HCL 1 MG/ML 2ML VIAL ONE (15:50)
[2024-01-08] MEDS ORDERED: SUGAMMADEX SODIUM 200 MG/2 ML VIAL IV ONE ×2 (15:51→16:56)
[2024-01-08] MEDS ORDERED: HYDROmorphone INJ 1 MG/ML SYRINGE IV PRN (16:11)
[2024-01-08] MEDS ORDERED: ATROPINE SULFATE 0.1 MG/ML 10ML SYR IV PRN (16:11)
[2024-01-08] MEDS ORDERED: ePHEDrine sulfate 50 MG/ML AMP IV PRN (16:11)
[2024-01-08] MEDS ORDERED: ONDANSETRON INJ 2 MG/ML 2 ML VIAL IV PRN (16:11)
--- NOTE | 2024-01-08 16:11 | Anesthesiology Consultation ---
Date of Service January 08, 2024 Assessment & Plan ASA ASA2 Proposed Anesthesia Anesthesia Type: General Risk / Benefits Reviewed With: PT / POA / Parent / Guardian, Accepts Plan and Informed Consent Obtained History Surgery Operation Date: 01/08/24 12:15 Proposed Procedures p Left Facial Abscess Incision and Drainage - Bandar aBilon DMD s Extraction #18 - Bandar Bailon DMD Height/Weight Height: 5 ft 2 in Weight: 167.8 kg Allergies Allergy/AdvReac Type Severity Reaction Status Date / Time levofloxacin [From Levaquin] Allergy Intermediate HIVES ITCHY Verified 09/06/23 08:54 prednisone AdvReac Intermediate APPETITE Verified 09/06/23 08:54 LOSS/ANXIOUS/BUGS CRAWLING ON SKIN Medications Home Medications Medication Instructions Recorded Confirmed Last Taken levonorgestrel 21 mcg/24 hr (up to 1 device intrauterine UD 03/17/19 01/08/24 03/06/22 11:17 8 years) 52 mg intrauterine device (Mirena) multivitamin (Multiple Vitamins 1 tab PO QAM 05/12/20 01/08/24 02/25/22 08:00 tablet) sumatriptan succinate 100 mg 100 mg PO .COMPLEX PRN migraine 04/09/22 01/08/24 Unknown tablet (Imitrex) headache 30 days #9 tabs amoxicillin 875 mg-potassium 1 tab PO BID 01/08/24 01/08/24 Unknown clavulanate 125 mg tablet ibuprofen 800 mg tablet 800 mg PO TID 01/08/24 01/08/24 Unknown Active Medications Generic Name Dose Route Start Last Admin Trade Name Freq PRN Reason Stop Dose Admin Ampicillin Sodium/Sulbactam Sodium 3,000 mg in 100 mls @ 200 mls/hr 01/08/24 08:00 01/08/24 14:33 Unasyn IV 01/18/24 07:59 Infused Q6H TAZ Infusion Lactated Ringer's 1,000 mls @ 100 mls/hr 01/08/24 10:23 01/08/24 11:31 Lr IV 01/08/24 20:22 100 mls/hr .Q10H ONE Administration Ibuprofen 800 mg 01/08/24 09:00 01/08/24 13:36 Ibuprofen 800 Mg Tab PO 02/07/24 08:59 800 mg TID TAZ Administration NPO Date Last Intake of Fluids: 01/08/24 Time Last Intake of Fluids: 00:00 Date Last Intake of Solids: 01/08/24 Time Last Intake of Solids: 00:00 Past Medical History Medical History Hx of endometriosis Kidney stones Lyme disease Dx several years ago, no current issues History of COVID-19 05/2021 > sinus infection 04/2020 > severe cold symptoms, asthma flare Depression Morbid obesity BMI 66.5 Exercise / Class Metabolic Activity II 4-5 Yardwork/Stairs/Walk up hill Past Family History Family History Grandfather (Maternal) Coronary heart disease Mother Hypertension Grandmother (Paternal) Family history of diabetes mellitus Family/Other Family history of diabetes mellitus Family/Other Family history of diabetes mellitus Past Surgical History Surgical History Status post cystoscopy with ureteral stent placement 02/22/22 @ [facility] History of repair of rotator cuff left shoulder History of colonoscopy H/O laparoscopy Past Anesthesia History No Hx of Anesthesia Complications and No Family Hx of Anesthesia Complications History of PONV No Hx of PONV and No Hx of Motion Sickness Social History Smoking Status: Never smoker Do You Dip or Chew Tobacco: No Hx Alcohol Use: No Hx Substance Use: No substance use type: does not use Review of Systems denies fever/cough/ colds/ chest pain/ SOB/ SUSAN denies SUSAN Physical Exam Vital Signs Last Vital Signs Temp 36.7 C 01/08/24 08:03 Pulse 83 01/08/24 08:03 Resp 14 01/08/24 08:03 BP 136/76 01/08/24 08:03 Pulse Ox 95 01/08/24 08:03 O2 Del Method Room Air 01/08/24 08:03 ENMT Mouth: no TMJ abnormality and no dentition abnormality Thyromental Distance: > or= 3.5 Finger Breadths Mallampati Class: II Neck neck extension not limited Respiratory normal respiratory effort; no respiratory distress Auscultation: lungs clear to auscultation bilaterally Cardiovascular Rate/Rhythm: regular rate and regular rhythm Neurologic moves all extremities Psychiatric Orientation: alert and oriented x 3 Testing Laboratory Results 01/07/24 22:35 01/07/24 22:35
[2024-01-08] MEDS: CHLORHEXIDINE GLUCONATE 0.12% 480 ML MT ONE (16:53)
[2024-01-08] MEDS: SURGICEL ABSORB HEMOSTAT 2IN X 14IN TOP ONE (16:54)
[2024-01-08] MEDS: BUPIVACAINE/EPINEPHRINE 0.5% 1:200,000 1.8 ML CARP ONE (16:54)
--- NOTE | 2024-01-08 17:04 | Post Operative Brief Note ---
PG Immediate Post Op with CF Date of Surgery January 08, 2024 Pre & Post Diagnosis Operation Date: 01/08/24 12:15 Pre-Op Diagnosis: 1. Trismus; 2. Abscess, periapical; 3. Dental infection. Post-Op Diagnosis: 1. Trismus; 2. Abscess, periapical; 3. Dental infection. I identified the patient and participated in the time-out.: Yes Procedure Operation Date: 01/08/24 12:15 Actual Procedures p Left Facial Abscess Incision and Drainage(Left) - Bandar Bailon DMD s Extraction #18(Not Applicable) - Bandar Bailon DMD Surgeon Bandar Bailon DMD Virtual Assistant none Estimated Blood Loss 2 Findings Consistent with Post-Op Diagnosis masseter space abscess ,# 18, trismus Specimens Specimen Description: no specimen per surgeon Anesthesia Type General Complications none Disposition Accompanied Patient To Recovery: Yes
[2024-01-08] MEDS: fentaNYL citrate PF 100 MCG/2 ML VIAL IV PRN (17:35)
--- NOTE | 2024-01-08 17:42 | Anesthesiology Progress Note ---
Date of Service January 08, 2024 Anesthesia Post Procedure Vital Signs Vital Signs: Temp Pulse Pulse Pulse Resp BP BP 01/08/24 17:30 81 16 129/89 01/08/24 17:20 37.1 C 88 18 129/81 01/08/24 17:10 94 H 19 172/90 H 01/08/24 17:08 36.8 C 108 H 16 166/109 H 01/08/24 15:53 37.3 C 80 20 01/08/24 08:03 36.7 C 83 14 01/08/24 07:42 36.5 C 76 18 103/66 01/08/24 04:40 01/08/24 04:40 36.9 C 76 14 141/86 H 01/08/24 02:00 74 18 140/93 01/08/24 00:00 82 20 141/91 H 01/07/24 21:56 36.6 C 97 H 20 156/94 H BP Pulse Ox O2 Del Method O2 Flow Rate 01/08/24 17:30 93 Room Air 01/08/24 17:20 100 Oxymask 3 01/08/24 17:10 100 Oxymask 6 01/08/24 17:08 100 Oxymask 6 01/08/24 15:53 151/88 H 96 Room Air 01/08/24 08:03 136/76 95 Room Air 01/08/24 07:42 96 Room Air 01/08/24 04:40 Room Air 01/08/24 04:40 95 Room Air 01/08/24 02:00 97 Room Air 01/08/24 00:00 98 Room Air 01/07/24 21:56 95 Room Air Pain Intensity Jaw: Pain Intensity: 5 Transfer of Care Handoff Completed per policy Notes Mental Status: alert / awake / arousable and participated in evaluation Patient Amnestic to Procedure: Yes Nausea / Vomiting: adequately controlled Pain: adequately controlled Airway Patency, RR, SpO2: stable & adequate BP & HR: stable & adequate Hydration State: stable & adequate Anesthetic Complications: no major complications apparent and Pt Satisfied with anesthetic care
[2024-01-08] MEDS: ACETAMINOPHEN 500 MG TAB PO PRN (22:10)
[2024-01-08] MEDS: HYDROCODONE/ACETAMOPHEN 5/325MG TAB PO PRN (23:44)
[2024-01-09] MEDS: HYDROmorphone INJ 0.5 MG/0.5 ML SYR IV STA (00:48)
[2024-01-09] MEDS ORDERED: oxyCODONE/ACETAMINOPHEN 5mg/325mg TAB PO PRN (08:58)
[2024-01-09] MEDS: oxyCODONE/ACETAMINOPHEN 10-325 TAB PO PRN (09:49)
--- NOTE | 2024-01-09 10:48 | Hospitalist Progress Note ---
Date of Service January 09, 2024 Assessment & Plan (1) Dental infection: Plan: - s/p left facial abscess I&D with tooth (#18) extraction - failed amoxicillin outpatient prior to admission - left posterior mandibular abscess of [address] - no signs of systemic infection during admission - Continue with warm compresses - Tylenol, Ibuprofen, Oxycodone, and Zofran as needed - advanced to regular diet, tolerating well - Unasyn 3gm IV q 6hr, will transition to Clindamycin 300 mg PO Q6 x 7days upon discharge - OMFS cleared for discharge Plan VTE ppx: SCDs Diet: regular Code status: FULL CODE Anticipated d/c: 01/10/24 Admission and Anticipated Discharge Date Admission Date: January 08, 2024 Supervising Physician Co-Signing Physician Notes Patient was seen and examined independently I discussed the case with Iman THOMAS I reviewed pertinent past medical social family history and also the plan of care and agree with the plan of care. Patient was in her hospital room she said she still has some pain to the posterior left jaw but has had good surgical outcome according to [facility] surgery pain is limiting eating and being a barrier to discharge Generally she has no other medical problems or complaints at this time She is awake alert appropriate she is able to control her secretions and protect her airway she remains without significant lymphadenopathy in the posterior mandibular inframandibular area Card exam is regular lungs are clear Periodontal abscess with oral maxillofacial surgical consultation continuing Unasyn therapy s/p abscess drainage consider clindamycin at discharge Any exceptions will be noted below Subjective Patient is doing well, no acute events overnight. She stated that her pain is worse now than before the surgery. She took [place] last night with minimal relief, and then had full relief with Dilaudid. Patient tolerated dinner well last night, but struggled this morning with breakfast due to pain. She complains of a sore throat and cough post operatively, but states that her symptoms are improving. She denies nausea, vomiting, dizziness, lightheadedness, vision changes, shortness of breath, chest pain, abdominal pain, and numbness/tingling. She has not had a bowel movement since surgery, although she states prior to surgery she did not eat anything for multiple days due to pain. She has been urinating fine post-operatively, denies dysuria and hematuria. She has concerns about going home today due to pain. Patient reassessed throughout the day. She continues to have uncontrolled pain. She feels as though she cannot open her mouth still and she has pain with eating. She also developed nausea after lunch. Review of Systems Review of Systems: See hpi Physical Exam Physical Exam: The patient is awake, alert and oriented 3, well developed and well nourished, normocephalic and atraumatic, lying in bed and in no acute distress. Non-toxic appearing. HEENT- EOMI, mucous membranes moist. Hearing grossly intact. Patient unable to open mouth fully. Bruising and erythema noted posteriorly on left side of mouth. Neck- Thyroid normal, trachea midline. Mild tenderness on left side below the chin and into the upper neck, no erythema or swelling. Heart-normal S1 and S2. No murmurs, rubs or gallops. Lungs-clear bilaterally, no respiratory distress, no accessory muscle use. Abdomen-normal bowel sounds and soft.No ascites. Non-tender. Extremities-no cyanosis or clubbing. No edema. Dermatologic-normal color, no rash. Rheumatologic-normal range of motion. Psychiatric-normal affect. Results & Data Results & Data Vital Signs (Past 12 Hours) Vital Signs Temp Pulse Resp BP Pulse Ox O2 Del Method 01/09/24 08:00 Room Air 01/09/24 07:43 36.7 C 83 17 137/82 94 Room Air 01/09/24 03:58 36.7 C 86 18 133/84 93 Room Air 01/09/24 01:00 Room Air 01/08/24 23:51 37.2 C 87 18 140/85 93 Room Air PG Care Time/CCT Total # of Minutes Spent Total Time Spent with Patient: Total time spent is greater than 50% in coordination of care (as documented) at patient's floor/unit and/or counseling patient: Coding Level of Care Code None Diagnoses Dental infection K04.7
--- NOTE | 2024-01-09 12:11 | Oral/Maxillofacial Progress Nt ---
Date of Service January 09, 2024 Assessment & Plan Admission and Anticipated Discharge Date Admission Date: January 08, 2024 Subjective Post Op infection evaluation at 24 hours The infected area has responded very well. Swelling is almost gone and the tissue is looking good. No further drainage is noted. Infection has responded very well to the antibiotics, extraction of # 18 and the I and D of the left masseter space abscess. I requested that the patient continue with massage, heat and wound care. At this time the area is well healed and responded well to treatment, no further treatment needed from oral surgery point of view. I would suggest she be discharged on a 7 day course of Augmentin BID, Vicodin for pain control. Healing should be uneventful and if she needs to see me for follow up care I gave her my office information RTC as needed. Results & Data Vital Signs (Past 12 Hours) Vital Signs Temp Pulse Resp BP Pulse Ox O2 Del Method 01/09/24 08:00 Room Air 01/09/24 07:43 36.7 C 83 17 137/82 94 Room Air 01/09/24 03:58 36.7 C 86 18 133/84 93 Room Air 01/09/24 01:00 Room Air PG Care Time/CCT Total # of Minutes Spent Total Time Spent with Patient: Total time spent is greater than 50% in coordination of care (as documented) at patient's floor/unit and/or counseling patient: Coding Level of Care Code None
--- NOTE | 2024-01-09 13:16 | Billing Data ---
Date of Service January 09, 2024 Coding Level of Care Code 37706 INT INP/OBS CARE
[2024-01-09] MEDS: ONDANSETRON INJ 2 MG/ML 2 ML VIAL IV PRN (15:50)
[2024-01-09 20:29] VITALS: TEMP 97.9
--- NOTE | 2024-01-10 07:51 | Hospitalist Progress Note ---
Date of Service January 10, 2024 Assessment & Plan (1) Dental infection: Plan: - s/p left facial abscess I&D with tooth (#18) extraction - failed amoxicillin outpatient prior to admission - left posterior mandibular abscess of [address] - no signs of systemic infection during admission - Continue with warm compresses - Tylenol, Ibuprofen, Oxycodone, and Zofran as needed - advanced to regular diet, tolerating well - Unasyn 3gm IV q 6hr, will transition to Clindamycin 300 mg PO Q6 x 7days upon discharge (however will discuss w/ prior provider as Dr Bailon rec Augmentin x 7 day course) RTC as needed in follow up. Pain control - OMFS cleared for discharge 01/09 Unasyn IV, percocet for pain seems to be adeqaute. Tolerating diet advancement and planning to dc today, likely on Augmentin to complete 7 day course as prior provider reported patient had actually been on AMOXICILLIN however prescription in bag in room IS FOR AUGMENTIN. Will message Dr Bailon to discuss if ok to dc on Augmentin or if need to switch to Clinda to complete course. Rx for pain meds w/ percocet as well as ibuprofen and will plan to send zofran SL as needed. Plan VTE ppx: SCDs Diet: regular Code status: FULL CODE Anticipated d/c: 01/10/24 Admission and Anticipated Discharge Date Admission Date: January 08, 2024 Subjective Eval this morning, doing well with lower jaw pain but still having some nerve pain on the upuper part of jaw. Does have hx migraine. Was taking zofran w/ pain meds and was effective, can give rx for zofran SL at discharge. Will give dose of toradol but discussed if feeling well at lunch will mooney to dc. Initially thought was on amoxicillin prior to admission (prior to that was reported augmentin) however pill bag in room IS FOR AUGMENTIN and will discuss with Dr Bailon to see if able to continue such or if needing to switch to Clina. Questions/concerns addressed at this time. Results & Data Results & Data Vital Signs (Past 12 Hours) Vital Signs Temp Pulse Pulse Resp BP Pulse Ox O2 Del Method 01/10/24 07:42 36.6 C 71 18 130/88 97 Room Air 01/09/24 20:28 36.6 C 76 18 105/63 97 Room Air 01/09/24 20:00 Room Air PG Care Time/CCT Total # of Minutes Spent Total Time Spent with Patient: Total time spent is greater than 50% in coordination of care (as documented) at patient's floor/unit and/or counseling patient: Coding Diagnoses Dental infection K04.7
[2024-01-10] MEDS: KETOROLAC TROMETHAMINE 15 MG/ML VIAL IV ONE (09:52)
[2024-01-10] MEDS: FAMOTIDINE 20MG IV PUSH 20 MG/5 ML SYR IV STA (11:11)
--- NOTE | 2024-01-10 12:01 | Discharge Summary ---
Discharge Summary Date of Service January 10, 2024 Principal Dx & Hospital Course #1 = Principal Diagnosis (1) Dental infection: Patient presented to urgent care for acute tooth pain/facial swelling and placed on Augmentin with increased/ongoing pain and presented to emergency department for evaluation CT imaging noting "Posteriorly left mandibular a small 6 mm periapical lucency/periapical abscess is seen. Mildly enlarged predominantly left submandibular lymph nodes." Placed on Unasyn IV on admission OMFS consulted, Dr Bailon s/p Left Facial Abscess Incision and Drainage(Left) , Extraction #18(Not Applicable) - Bandar Bailon, DMD on 01/07 OMFS cleared for dc 01/08 however did want to stay for concerns for pain control and was continued on Unasyn IV an ongoing pain control and [place] switched to percocet and provided Toradol IV prior to discharge with new rx for ibuprofen to alternate with percocet (and can use tylenol but cautious use to not exceed 3,000mg in 24 hour period of time as APAP in percocet). Did send rx for zofran as headache w/ hx migraine and could be rebound and encouraged baseline tylenol when pain improving. Continue oral hygeine/heat/massage. Discussed with Dr Bailon given on Augmentin prior to admission and Dr Bailon rec prefers patient to continue augmentin at dc to complete 7 day course and can follow up with any ongoing issues. Plan discharged home on augmentin/percocet/ibuprofen for pain control. short rx for zofran as needed. Notes For Next Care Provider Per discussion with Dr Bailon, despite on augmentin prior to admission is OK and preferred by him for patient to complete course with Augmentin to complete 7 day course. Rx for pain medication and zofran as needed but discussed rebound headache with patient with opiate medications with hx of migraine Medication Changes From Visit Augmentin PO BID x 5 more days Ibuprofen prn Percocet prn Zofran SL prn Admission HPI Per Admitting Provider Venessa Clement is a 43yo female presenting with right sided facial pain and sw elling. Patient developed a slight toothache in the left mandibular molar on 01/02/24. Her pain became much worse overnight into 01/02. When she woke in the morning she had warmth, swelling and tenderness of the left side of the face. She tried to call her dentist but he was unavailable on vacation so she was directed to go to Urgent Care. She was diagnosed with a tooth infection and prescribed Augmentin 875/125mg BID and Ibuprofen 800mg po TID. She has been taking her medications as prescribed. She initially had some improvement. However, yesterday she was unable to open her mouth. She called her PCP and had an appointment scheduled for tomorrow AM. THis evening she had a bulge in her left neck and under her chin on the left side. She reports she felt something "pop" and felt fluid spread down her neck. Her pain is persistent and she is still unable to open her mouth. She had a fever initially on 01/01 but not since No additional complaints at this time Admission Exam Per Admitting Provider General: patient resting comfortably, NAD, non-toxic in appearance, AA&O x 4 Skin: warm, dry, intact, no rashes or lesions HEENT: NC/AT, PERRL, EOMI, anicteric sclera, conjunctiva without injection, external ear normal to inspection and nontender, nares patent, dry mucus membranes, patient unable to open mouth omre than a couple of millimeters, broke tooth in left lower, warmth, tenderness on the left side of the fact, below chin and into the neck Heart: +S1/S2, regular, no m/r/g Lungs: equal air entry bilaterally, no rales/rhonchi/wheezes Abd: +BS, soft, NT/ND, no masses/organomegaly/ascites Ext: warm, 2+ pulses in UE/LE bilaterally, no clubbing/cyanosis or edema Neuro: nonfocal, patient AA&O x 4, speech intact, no facial droop, moving all extremities on command with equal strength 5/5 Discharge Exam General: 43yo female sitting up in bed, NAD but reporting ongoing discomfort from mouth at times HEENT: decreased swelling, improvement in ability to open mouth but still painful. bruising to L posterior mouth at site of extraction, no active drainage/bleeding +reactive lymphadenopathy sensitivity to TMJ region Resp: even/unlabored, no w/c/r, on room air CV: RRR, no significant mrg GI: +BS, soft/NT MSK/Neuro: nontender, answering questions appropriately, not confused Psych: AOx3, cooperative with exam Discharge Plan Discharge Items Patient Disposition: Home - Self-Care Reason For Visit: TRISMUS, DENTAL INFECTION Discharge Diagnosis: Masseter space infection with trismus. Condition on Discharge: Good Activity: Resume your previous activity Lifting: Gradually increase as tolerated Bathing: No limitations Exercise/Sports: Gradually increase as tolerated Driving/Machine Use: Resume 1 day after discharge Weightbearing: Full weightbearing Non-emergency contact: Surgeon Call non-emergency contact if: your temperature is above 101.5, your wound has increased redness, your wound has increased drainage and your wound pain has increased Follow-up/Referrals: Bandar Bailon, DMD [Physician] - PCP,NO [Physician] - Diet: Regular Diet Texture: Easy to Chew Diet Comment: diet as tolerated Addtl Attending Provider Instructions: You have been hospitalized for dental infection not responding to oral antibiotics and imaging was obtained and Dr Bailon was consulted and you underwent surgery for removal of the infected tooth and are being sent on continued antibiotics with AUGMENTIN to complete a total 7 day course along with ongoing pain control with percocet which has been used in the hospital. Antibiotics should be for another FIVE days. Please continued heat, massage and good mouth/dental hygiene. You can follow up with Dr Bailon as needed. Activity recommendations from Dr Bailon are listed below. Please alternate the percocet and ibuprofen for pain control. You can take tylenol but not to exceed 3000mg in a 24 hour period of time as there is a small amount of tylenol in the percocet as well. Dissolvable under the tongue zofran has been sent for nausea with pain medications as needed. Please note these can make you drowsy and do not drive on these medications. Please follow up with primary care in the next 7-10 days after discharge. Please return to the ER with any worsening pain/swelling, fever, inability to tolerate oral intake/hydration, or for any other symptoms concerning for you. It has been a pleasure being a part of the medical team providing for you while you have been in the hospital. Take care! Addtl [employer] Supervisor Provider Instructions: ADDITIONAL ACTIVITY RECOMMENDATIONS: * [place] teeth after every meal. It is very important to keep your mouth clean to prevent infection. * Starting tonight rinse with the Peridex as directed then 2 x a day * it is very important to keep well hydrated, this prevents fever and possible dry socket pain SPECIAL CARE INSTRUCTIONS: *It is not uncommon that between day 2-4 that your swelling will be at its worst this is very normal, do not be alarmed. * Keep ice on the side of your face for the next 24 to 36 hours. This will help keep the swelling down. * Tomorrow start rinsing your mouth with 1/2 teaspoon salt in 8 ounces warm water. This rinse should be used every 4-6 hours. * Some swelling is common. It should gradually decrease within 4-5 days. * A certain amount of bleeding is to be expected. It is often possible to control mild oozing by placing folded gauze over the area and biting down for 30 minutes. If you are unable to control excessive bleeding, call Dr Bailon at [phone] * You may experience some discomfort for a few days. If pain or swelling increases, Call Dr Bailon * Return to the office for a follow up check up on: call if needed * office address--[email or web address] . phone # [phone] Pending Studies at Discharge: No Stand-Alone Forms: My [employer], Pain - Opioid Pain Management, Smoking Cessation Medications and DC Order Prescriptions: New oxycodone-acetaminophen 10-325 mg Tablet 1 tab PO Q6H PRN (Reason: pain) Qty: 14 0RF amoxicillin-pot clavulanate 875-125 mg tablet 1 tab PO BID Qty: 10 0RF ondansetron 4 mg tablet,disintegrating 4 mg PO Q8H PRN (Reason: nausea and vomiting) 4 Days Qty: 14 0RF Continued Mirena 20 mcg/24 hours (5 yrs) 52 mg intrauterine device 1 device intrauterine UD multivitamin [Multiple Vitamins] Tablet 1 tab PO QAM sumatriptan succinate [Imitrex] 100 mg tablet 100 mg PO .COMPLEX PRN (Reason: migraine headache) 30 Days Qty: 9 5RF Rx Instructions: take one prn headache, may repeat after 2 hours prn, limit 2-3 days / week Changed ibuprofen 800 mg tablet 800 mg PO TID PRN (Reason: pain) Qty: 14 0RF Discharge Orders: Discharge Order (Routine); Ordered 01/10/24 Ordered By: Roberta Morales/Other Patient Handouts: ED Dental Abscess Admission Data Admit Date/Time: 01/08/24 00:59 Attending Provider: Tex Calderon Admit Provider: Elsy Lomeli Primary Care Provider: Belgica Orozco Other Providers: Elsy Lomeli; Bandar Bailon Other Interventions: Discharge Summary Assessment (RN) Last Done: 01/10/24 11:39 Hospital Stay Data Consultations 01/08/24 00:59 ED Decision to Admit Stat 01/08/24 00:59 Consult Oromaxillofacial Surgery Routine Procedures Performed Operation Date: 01/08/24 12:15 Actual Procedures p Left Facial Abscess Incision and Drainage(Left) - Bandar Bailon DMD s Extraction #18(Not Applicable) - Bandar Bailon DMD Diagnostic Imagining Performed Face CT 01/07/24 22:28 Exam(s): CT FACIAL With Contrast IV Amt: 118 ML OPTIRAY 320 EXAM: CT Maxillofacial With Intravenous Contrast CLINICAL HISTORY: Reason for exam: lower dental infection, trismus. TECHNIQUE: Axial computed tomography images of the face with intravenous contrast. CTDI is 13.27 mGy and DLP is 259.73 mGy-cm. Automated exposure control was utilized for the study. A dose lowering technique was utilized adhering to the principles of ALARA. CONTRAST: Patient received 118 ML OPTIRAY 320 of IV contrast COMPARISON: None. FINDINGS: Diagnostic sensitivity of the exam is reduced by motion and beam hardening artifacts. Bones/joints: No acute fracture. Soft tissues: Posterior left mandibular a 6.0 mm periapical lucency/periapical abscess is demonstrated (series 2 image 59, series 301 image 36). Orbits: Unremarkable. Sinuses: Minimal left maxillary sinus mucosal thickening. No air-fluid levels. Other findings: Mildly enlarged predominantly left submandibular lymph nodes. IMPRESSION: Posteriorly left mandibular a small 6 mm periapical lucency/periapical abscess is seen.. Mildly enlarged predominantly left submandibular lymph nodes. Electronically signed by: John Rivas MD, DABR 01/08/24 00:36 AM Pending Results Patient Have Any Pending Studies at Discharge: No Discharge Instructions Given to Patient (Per Discharging Provider) You have been hospitalized for dental infection not responding to oral antibiotics and imaging was obtained and Dr Bailon was consulted and you underwent surgery for removal of the infected tooth and are being sent on continued antibiotics with AUGMENTIN to complete a total 7 day course along with ongoing pain control with percocet which has been used in the hospital. Antibiotics should be for another FIVE days. Please continued heat, massage and good mouth/dental hygiene. You can follow up with Dr Bailon as needed. Activity recommendations from Dr Bailon are listed below. Please alternate the percocet and ibuprofen for pain control. You can take tylenol but not to exceed 3000mg in a 24 hour period of time as there is a small amount of tylenol in the percocet as well. Dissolvable under the tongue zofran has been sent for nausea with pain medications as needed. Please note these can make you drowsy and do not drive on these medications. Please follow up with primary care in the next 7-10 days after discharge. Please return to the ER with any worsening pain/swelling, fever, inability to tolerate oral intake/hydration, or for any other symptoms concerning for you. It has been a pleasure being a part of the medical team providing for you while you have been in the hospital. Take care! Supervising Physician Co-Signing Physician Notes The patient was not seen by me. The chart was reviewed. Case discussed with ROBB Vieyra. Agree with assessment and plan Total Time Total Time Spent Total Time Spent (In Minutes): 45 Coding Level of Care Code 81092 INP/OBS DISCH >30 MIN Diagnoses Dental infection K04.7
[2024-01-10 12:55] VITALS: BP 158/96; PULSE 85; RESP 16; O2SAT 98
--- NOTE | 2024-02-06 21:59 | Operative Report ---
[facility] Post Operative Report Pre & Post Diagnosis Operation Date: 01/08/24 12:15 Pre-Op Diagnosis: 1. Trismus; 2. Abscess, periapical; 3. Dental infection. Post-Op Diagnosis: 1. Trismus; 2. Abscess, periapical; 3. Dental infection. I identified the patient and participated in the time-out.: Yes Procedure Operation Date: 01/08/24 12:15 Actual Procedures p Left Facial Abscess Incision and Drainage(Left) - Bandar Bailon DMD s Extraction #18(Not Applicable) - Bandar Bailon DMD Surgeon Bandar Bailon DMD H[employer] Commanding Officer none Estimated Blood Loss 2 Findings Consistent with Post-Op Diagnosis Specimens none Drains none Anesthesia Type General Complications none Disposition Accompanied Patient To Recovery: Yes Indications infection lower left side, floor of the mouth and masseter space causing trismus Description of Procedure Actual Procedures p Incision and Drainage Submandibular Abscess, floor of mouth and crib attendant space abscess infection ; Removal of Tooth #18(Not Applicable) - Bandar Bailon DMD ICD10 K12.2 CPT 76260 I&D floor of mouth and crib attendant space abscess Extraction # 18 [id number] for # 18 Once cleared for surgery general anesthesia was achieved, the eyes were protected by the anesthesia dept criteria. A time out was take for patient ID, antibiotics, equipment and position verification once all agreed the procedure began. Local anesthesia using Marcaine with a vasoconstrictor ( 1.8 ml per site) given into left inferior alveolar nerve A throat pack was placed after the oral cavity was irrigated with saline. Once a surgical level of anesthesia was obtained and the local anesthesia was given time for the blocks the surgery was started. I turned my attention to the infection which was located in the floor of the mouth and submental area. The tongue was elevated and there was also swelling associated with tooth # 18 ( see CT scan report) Incision and Drainage Mouth opening very very limited due to the significant trismus-- crib attendant space abscess A small bite block was used to keep the mouth open enough to allow the I&D and # 18 extraction. Using a 15 blade an incision was made medial to the alveolar ridge and lateral to the duct of the submandibular gland. Once the incision was made a lot of pus extruded from the site. A curved hemostat was carefully placed into the infected space along the medial side of the lower jaw and into the submental and submandibular space. Some further drainage was now allowed to escape. I now opened the crib attendant space abscess and retromolar trigone area. I palpated the chin and submental area and no further drainage was expressed. The area was irrigated with at least 100 ml of NS solution. I now turned my attention to remove the # 18 tooth. Lower # 28 The full thick Muco-periosteal flap was made on the facial aspect from # 17-21. The flap was reflected to expose the the subperiosteal space the bone adjacent to # 18. The rongeur was used to remove bone, the tooth was removed with a 301 elevator and cowhorn forceps, the mental nerve was intact, there was a large amount of granulation tissue on the apex and some more pus that was expressed. I inspected the sites to insure all bleeding was controlled. I removed the throat pack and suctioned the throat. A gauze pressure dressings was placed. All instrument and sponge count was correct. The patient was allowed to awake from the anesthesia. Once full awake the anesthesia tube was removed and the patient was taken to the recovery room with all vital sign stable. The patient tolerated the surgery very well. I will follow the patient in my office, Rx and instructions will be given upon discharge. I attest to the content of the Intraoperative Record and any orders documented therein. Any exceptions are noted below.
== END 2024-01-10 13:29 | disposition home or self-care (01) ==
LOC: ED 21:54 → 3E 21:54 → SUATTDRO 01-08 00:59 → 3E 01-08 04:14